=== PATIENT | male | born 1990 | race Caucasian/White ===

== ENCOUNTER 2020-02-20 11:24 | Emergency (ER) | payer OTHER ==
[~2020-02-20] VITALS: Ht 170.2 cm; Wt 77.1 kg
[2020-02-20 13:26] LABS: ABSOLUTE NEUTROPHILS 6.1 thou/uL (1.4-8.2); BASOPHILS 0.6 % (0.0-2.0); EOSINOPHILS 10.9 % (0.0-3.0); HEMATOCRIT 46.6 % (42.0-52.0); HEMOGLOBIN 15.6 gm/dL (14.0-18.0); LYMPHOCYTES 14.4 % (24.0-44.0); MCH 28.7 pg (26.0-34.0); MCHC 33.4 g/dL (28.0-37.0); MCV 85.8 fL (80.0-100.0); PLATELET COUNT 273 thou/uL (150-400); POLYS 69.1 % (36.0-66.0); RBC 5.43 mil/uL (4.50-6.00); RDW 13.5 % (10.5-14.5); WBC 8.9 thou/uL (4.0-11.0)
[2020-02-20 13:48] LABS: CALCIUM 10.4 mg/dL (8.5-10.1); CREATININE 1.1 mg/dL (0.7-1.3); POTASSIUM 4.2 mmol/L (3.5-5.1)
[2020-02-20 13:54] LABS: ALBUMIN 4.5 g/dL (3.4-5.0); TOTAL BILIRUBIN 0.3 mg/dL (0.2-1.0); TOTAL PROTEIN 8.2 g/dL (6.4-8.2)
[2020-02-20] MEDS ORDERED: MIRALAX119 GM PO (17:23)
[2020-02-20] MEDS ORDERED: OMEPRAZOLE 20 M20 M1 PO (17:23)
[2020-02-20] MEDS ORDERED: ZOFRAN ODT4 MG PO (17:23)
[2020-02-20 17:55] VITALS: BP 119/71
== END 2020-02-20 17:56 | disposition home or self-care (01) ==
LOC: ER 11:24
PROVIDERS: Emergency Medicine
DX: R10.12 Left upper quadrant pain (principal); R10.31 Right lower quadrant pain